=== PATIENT | male | born 1990 | race Caucasian/White ===

== ENCOUNTER 2021-03-26 13:46 | Inpatient (IN) | payer SELFPAY ==
[2021-03-26] MEDS ORDERED: Aspirin Chewable 81 MG TAB ONE (14:13)
[2021-03-26] MEDS ORDERED: Dexamethasone 4 MG TAB ONE (14:13)
[2021-03-26 14:15] LABS: #Lymphocytes 0.6 thou/uL (1.20-3.40); #Monocytes 0.6 thou/uL (0.11-0.59); #Neutrophils 9.3 thou/uL (1.40-6.50); %Basophils 0.4 % (0.0-1.0); %Lymphocytes 5.9 % (21.0-51.0); %Neutrophils 87.7 % (42.0-75.0); Hemoglobin 15.8 g/dL (14.0-18.0); Mean Corpuscular HGB CONC 32.6 g/dL (32.0-36.0); Mean Corpuscular Hemoglobin 30.3 pg (27.0-31.0); Mean Corpuscular Volume 92.8 fL (78.0-98.0); Mean Platelet Volume 8.6 fL (7.4-10.4); Platelet Count 192 thou/uL (130-400); RBC Distribution Width 11.9 % (11.5-14.5); Red Blood Cell (RBC) Count 5.21 mill/uL (4.70-6.10); White Blood Cell (WBC) Count 10.6 thou/uL (4.8-10.8)
[2021-03-26 14:26] LABS: Base Excess-Venous 1.5 mmol/L (-2.0 to 3.0); Bicarbonate (HCO3v) 26.8 mmol/L (22.0-28.0); CO2 Tension (PvCO2) 43.2 mmHg (42.0-51.0); Calcium, Ionized 1.05 mmol/L (1.15-1.33); Chloride 100 mmol/L (98-107); Hemoglobin - Calc 16.8 g/dL (14.0-18.0); Potassium 3.9 mmol/L (3.5-5.1); Sodium 139 mmol/L (138-145); T. Carbon Dioxide 28.1 mmol/L (22.0-28.0); vO2 Saturation-calc 71.6 % (60.0-85.0)
[2021-03-26 14:27] LABS: ALT (SGPT) 41 U/L (8-55); AST (SGOT) 32 U/L (5-34); Albumin 4.1 g/dL (3.5-5.0); Alkaline Phosphatase 58 U/L (40-110); Anion Gap 18 mmol/L (10-20); BUN (Urea Nitrogen) 13 mg/dL (8.9-20.6); Bilirubin, Total 0.6 mg/dL (0.2-1.2); Calc. Creatinine Clearance 0 mL/min (70-130); Calcium 9.6 mg/dL (7.8-10.44); Carbon Dioxide 25 mmol/L (22-29); Chloride 98 mmol/L (98-107); Globulin 4.3 g/dL (2.4-3.5); Glucose 125 mg/dL (70-105); Potassium 4.4 mmol/L (3.5-5.1); Protein, Total 8.4 g/dL (6.0-8.3); Sodium 137 mmol/L (136-145)
[2021-03-26 18:01] LABS: SARS-CoV-2 NAA Rapid Test DETECTED (NotDetected)
[2021-03-26] MEDS ORDERED: Ondansetron ODT 4 MG TAB SL PRN (20:45)
[2021-03-26] MEDS ORDERED: Acetaminophen 325 MG TAB PO PRN (20:45)
[2021-03-26] MEDS ORDERED: Ondansetron PF 4 MG/2 ML Vial IVP PRN (20:45)
[2021-03-26] MEDS: Albuterol 200 PUFF (6.7GM INHALER) INH SCH (23:45)
[2021-03-27] MEDS: Albuterol 200 PUFF (6.7GM INHALER) INH SCH (06:00)
[2021-03-27] MEDS ORDERED: Dexamethasone 4 mg/ml Vial SLOW IVP SCH (09:00)
[2021-03-27] MEDS ORDERED: Enoxaparin Sodium 40 MG/0.4 ML SYRINGE SC SCH (09:00)
[2021-03-27 10:34] VITALS: BP 120/80; TEMP 98.6
[2021-03-27] MEDS ORDERED: Albuterol 200 PUFF (6.7GM INHALER) ONE (10:47)
[2021-03-27] MEDS ORDERED: Magnesium 2 GM/50 ML BAG (IN WATER) ONE (10:48)
[2021-03-27 11:13] LABS: Lactic Acid 2.8 mmol/L (0.5-2.2)
[2021-03-27 11:18] LABS: ALT (SGPT) 43 U/L (8-55); AST (SGOT) 27 U/L (5-34); Albumin 4.1 g/dL (3.5-5.0); Alkaline Phosphatase 60 U/L (40-110); Anion Gap 18 mmol/L (10-20); BUN (Urea Nitrogen) 14 mg/dL (8.9-20.6); Bilirubin, Total 0.6 mg/dL (0.2-1.2); Calc. Creatinine Clearance 185 mL/min (70-130); Calcium 9.3 mg/dL (7.8-10.44); Carbon Dioxide 25 mmol/L (22-29); Chloride 102 mmol/L (98-107); Globulin 3.9 g/dL (2.4-3.5); Glucose 178 mg/dL (70-105); Potassium 3.8 mmol/L (3.5-5.1); Sodium 141 mmol/L (136-145)
[2021-03-27 11:21] LABS: #Lymphocytes 0.7 thou/uL (1.20-3.40); #Monocytes 0.6 thou/uL (0.11-0.59); #Neutrophils 13.1 thou/uL (1.40-6.50); %Basophils 0.1 % (0.0-1.0); %Lymphocytes 4.8 % (21.0-51.0); %Monocytes 4.2 % (0.0-10.0); %Neutrophils 90.9 % (42.0-75.0); Hemoglobin 16.6 g/dL (14.0-18.0); Mean Corpuscular HGB CONC 34.4 g/dL (32.0-36.0); Mean Corpuscular Hemoglobin 30.5 pg (27.0-31.0); Mean Corpuscular Volume 88.6 fL (78.0-98.0); Mean Platelet Volume 7.4 fL (7.4-10.4); Platelet Count 236 thou/uL (130-400); RBC Distribution Width 11.5 % (11.5-14.5); Red Blood Cell (RBC) Count 5.43 mill/uL (4.70-6.10); Troponin I Less than 0.010 ng/mL (< 0.028); White Blood Cell (WBC) Count 14.5 thou/uL (4.8-10.8)
[2021-03-27 11:26] LABS: Base Excess-Venous 1.1 mmol/L (-2.0 to 3.0); Bicarbonate (HCO3v) 26.3 mmol/L (22.0-28.0); CO2 Tension (PvCO2) 42.8 mmHg (42.0-51.0); Calcium, Ionized 1.09 mmol/L (1.15-1.33); Chloride 102 mmol/L (98-107); Hemoglobin - Calc 15.6 g/dL (14.0-18.0); Potassium 3.9 mmol/L (3.5-5.1); Sodium 143 mmol/L (138-145); T. Carbon Dioxide 27.6 mmol/L (22.0-28.0); vO2 Saturation-calc 80.6 % (60.0-85.0)
== END 2021-03-27 18:41 | disposition short-term general hospital (02) | DRG 177 ==
LOC: BURERS 13:46 → BURMED 17:41
PROVIDERS: ADMIT Family Medicine; ATTEND Family Medicine
PROC: 8E0ZXY6 Isolation (ICD-10-PCS; principal; 2021-03-26)
DX: U07.1 COVID-19 (principal); J12.82 Pneumonia due to coronavirus disease 2019; R09.02 Hypoxemia
CPT/HCPCS: 71045; 71275; 80053; 82330; 82435; 82803; 83605; 84132; 84295; 84484; 85014; 85025; 85379; 94640; 94760; J1100; J1650; J3475; J7620; J8540; Q9967; U0002

== ENCOUNTER 2021-03-27 10:41 | Emergency (ER) | payer SELFPAY ==
[~2021-03-27 10:41] MED LIST: Iopamidol 370 76% 100 ML VIAL ONE
[2021-03-27] MEDS ORDERED: Dexamethasone 10 MG/ML VIAL ONE (10:54)
[2021-03-27] MEDS ORDERED: Aspirin Chewable 81 MG TAB ONE ×2 (10:54)
== END 2021-03-27 18:07 | disposition short-term general hospital (02) ==
LOC: BURERS 10:41
DX: U07.1 COVID-19 (principal); J12.82 Pneumonia due to coronavirus disease 2019; R09.02 Hypoxemia
CPT/HCPCS: 71275; J1100; Q9967